=== PATIENT | female | born 1970 | race Caucasian/White ===

== ENCOUNTER 2019-03-29 23:17 | Emergency (ER) | payer BC ==
[2019-03-29] MEDS ORDERED: Ondansetron INJ* 2 MG/ML VIAL IV ONE (23:52)
[2019-03-29] MEDS ORDERED: NS 0.9% 1000 ML** 1,000 ML IV ONE (23:52)
[2019-03-29] MEDS ORDERED: Ketorolac INJ* 30 MG/ML 1 ML VIAL IV PUSH ONE (23:52)
--- NOTE | 2019-03-30 00:14 | ED ---
Abdominal Pain/Female - HPI Summary HPI Summary: Patient is a 48 y/o F w/ Hx of gastic bypass 9 years ago who presents to [facility] with complaints of diffuse abdominal pain which radiates to her back. Pain has been constant throughout today, 03/29/19. She states that she had onset of nausea in ED but denies fever, vomiting, diarrhea, and dysuria. Decreased appetite is noted as well. Nothing is reported to alleviate Sx. Pain is characterized as sharp and she states it feels like "Miguel Ángel horses". No similar previous episodes of this pain is noted. PSHx of section, cholecystectomy reported. She denies tobacco, alcohol, and substance usage. No FMHx of GI issues noted. Patient has not taken any medications [employer]. On triage, pain is rated 6/10, nothing is noted to aggravate/alleviate Sx. Home medications and allergies are reviewed. - History of Current Complaint Chief Complaint: EDAbdPain Stated Complaint: ABD PAIN PER PT Time Seen by Provider: 03/29/19 23:51 Hx Obtained From: Patient Onset/Duration: Lasting Days, Still Present Timing: Days Severity Currently: Moderate Pain Intensity: 6 Pain Scale Used: 0-10 Numeric Location: Diffuse Radiates: Yes Radiates to: Back Character: Sharp Alleviating Factor(s): Nothing Associated Signs and Symptoms: Positive: Decreased Appetite, Nausea. Negative: Fever, Urinary Symptoms, Vomiting, Diarrhea Allergies/Adverse Reactions: Allergies Allergy/AdvReac Type Severity Reaction Status Date / Time No Known Allergies Allergy Verified 03/29/19 23:24 Home Medications: Home Medications ALPRAZolam [Xanax] 0.25 mg PO QPM 03/29/19 [History Confirmed 03/29/19] OXcarbazepine [Oxcarbazepine] 150 mg PO BID 03/29/19 [History Confirmed 03/29/19 ] Sertraline HCl [Zoloft] 75 mg PO DAILY 03/29/19 [History Confirmed 03/29/19] PMH/Surg Hx/FS Hx/Imm Hx Endocrine/Hematology History: Denies: Hx Diabetes Cardiovascular History: Denies: Hx Congestive Heart Failure History: Denies: Hx Renal Disease - Surgical History Surgery Procedure, Year, and Place: gastric bypass Infectious Disease History: No Infectious Disease History: Denies: Traveled Outside the [place] in Last 30 Days - Family History Known Family History: Positive: Hypertension, Diabetes - Social History Alcohol Use: None Substance Use Type: Reports: None Smoking Status (MU): Former Smoker Review of Systems Negative: Fever Gastrointestinal: Other - positive - decreased appetite Positive: Abdominal Pain, Nausea. Negative: Vomiting, Diarrhea Negative: dysuria All Other Systems Reviewed And Are Negative: Yes Physical Exam - Summary Physical Exam Summary: General: Well-developed, Well-nourished female. Mild discomfort at rest. HEENT: Normocephalic, Atraumatic. Eyes: Conjuctiva normal, PERRL. Ears: TMs within normal limits. Nares: (-) discharge, (-) erythema. Oropharynx: Clear, mucous membranes moist, (-) exudates. Neck: Soft, FROM, (-) lymphadenopathy, (-) thyromegaly, (-) JVD. Cardiovascular: Normal sinus rhythm, (-) murmur. Lungs: Clear to auscultation bilaterally (-) wheezes, (-) rales, (-) rhonchi. Abdomen: Soft, moderate tenderness of RUQ and epigastric abdomen, mild tenderness of LUQ; patient complains of diffuse pain throughout abdomen; non- distended, (-) organomegaly, normal bowel sounds. Back: (-) CVA tenderness Extremities: No edema. Skin: Warm, dry, (-) rash. Neuro: Alert and oriented x3, no focal deficits. Psychiatric: Mood normal, affect normal. Triage Information Reviewed: Yes Vital Signs On Initial Exam: Initial Vitals Temp Pulse Resp BP Pulse Ox 98.3 F 59 18 159/79 99 03/29/19 23:25 03/29/19 23:25 03/29/19 23:25 03/29/19 23:25 03/29/19 23:25 Vital Signs Reviewed: Yes Procedures - Sedation Patient Received Moderate/Deep Sedation with Procedure: No Diagnostics - Vital Signs Vital Signs Temp Pulse Resp BP Pulse Ox 03/29/19 23:25 98.3 F 59 18 159/79 99 - Laboratory Result Diagrams: 03/30/19 00:33 03/30/19 00:33 Lab Statement: Any lab studies that have been ordered have been reviewed, and results considered in the medical decision making process. - CT CT ABD/PEL CT Interpretation Completed By: Radiologist Summary of CT Findings: IMPRESSION: 1. Status post gastric surgery. 2. Cholecystectomy. 3. Left renal cyst. 4. Small amount of free intraperitoneal fluid in the cul-de-sac. 5. Probable uterine fibroid. 6. Hepatic calcifications. THIS REPORT WAS REVIEWED BY DR. PIERRE. Abdominal Pain Fem Course/Dx - Course Course Of Treatment: 48 y/o F presents to [facility] with abdominal pain at LLQ for one day. Hx of bypass surgery noted. Workup demonstrates no obvious fever or white count. CT scan shows no findings to explain her Sx. Patient was given IV fluids, toradol, fentanyl, zofran. Patient was discharged to home and will follow up with PCP. Patient will return to ED for any new or worsening symptoms. - Diagnoses Provider Diagnoses: Abdominal pain Discharge ED - Sign-Out/Discharge Documenting (check all that apply): Patient Departure - discharge - Discharge Plan Condition: Stable Disposition: HOME Patient Education Materials: Abdominal Pain (ED) Referrals: Donna Truong MD [Primary Care Provider] - 3 Days Additional Instructions: PLEASE RETURN TO ED FOR ANY NEW OR WORSENING SYMPTOMS. PLEASE FOLLOW UP WITH YOUR PRIMARY CARE PHYSICIAN WITHIN THREE DAYS. - Billing Disposition and Condition Condition: STABLE Disposition: Home - Attestation Statements Document Initiated by Nimo: Yes Documenting Scribe: CHULA CARROLL Provider For Whom Nimo is Documenting (Include Credential): BRODY PIERRE MD Scribe Attestation: CHULA Mancera scribed for BRODY PIERRE MD on 03/30/19 at 0402. Scribe Documentation Reviewed: Yes Provider Attestation: The documentation as recorded by the CHULA lamar accurately reflects the service I personally performed and the decisions made by me, BRODY PIERRE MD Status of Scribe Document: Viewed
[2019-03-30 00:27] LABS: Urine Appearance Clear; Urine Bilirubin Negative (Negative); Urine Blood 1+ (Negative); Urine Color Straw; Urine Glucose Negative (Negative); Urine Ketones Negative (Negative); Urine Nitrite Negative (Negative); Urine Protein Negative (Negative); Urine Specific Gravity 1.009 (1.010-1.030); Urine Urobilinogen Negative (Negative)
[2019-03-30 00:28] LABS: Urine Bacteria Absent (Absent); Urine Red Blood Cell 1+(3-5/hpf) (Absent); Urine Squamous Epithelial Cell Present (Absent); Urine White Blood Cell Absent (Absent)
[2019-03-30 00:50] LABS: ABS Eosinophils 0.1 10^3/ul (0-0.6); ABS Lymphocytes 1.2 10^3/ul (1.0-4.8); ABS Monocytes 0.5 10^3/ul (0-0.8); ABS Neutrophils 4.3 10^3/ul (1.5-7.7); Eosinophil % 1.3 %; Hematocrit 33 % (35-47); Hemoglobin 11.1 g/dL (12.0-16.0); Lymphocyte % 19.5 %; Mean Corpuscular HGB Conc 33 g/dL (31-36); Mean Corpuscular Hemoglobin 27 pg (27-31); Mean Corpuscular Volume 81 fL (80-97); Mean Platelet Volume 8.2 fL (7.4-10.4); Platelet Count 187 10^3/uL (150-450); Red Blood Count 4.09 10^6 /uL (3.70-4.87); Red Cell Distribution Width 15 % (10-15); White Blood Count 6.1 10^3/uL (3.5-10.8)
[2019-03-30 00:56] LABS: INR 0.93 (0.82-1.09)
[2019-03-30 01:03] LABS: ALT 15 U/L (7-52); AST 18 U/L (13-39); Albumin 3.6 g/dL (3.2-5.2); Albumin/Globulin Ratio 1.2 (1-3); Alkaline Phosphatase 90 U/L (34-104); Amylase 42 U/L (29-103); Anion Gap 6 mmol/L (2-11); BUN/Creatinine Ratio 19.1 (8-20); Blood Urea Nitrogen 13 mg/dL (6-24); C Reactive Protein < 1.00 mg/L (<8.01); CO2 Carbon Dioxide 26 mmol/L (22-32); Calcium 8.8 mg/dL (8.6-10.3); Chloride 105 mmol/L (101-111); EGFR African American 110.8 (>60); EGFR Non-African American 91.6 (>60); Glucose 93 mg/dL (70-100); Potassium 3.6 mmol/L (3.5-5.0); Sodium 137 mmol/L (135-145); Total Protein 6.6 g/dL (6.4-8.9)
[2019-03-30] MEDS ORDERED: Morphine INJ* 2 MG/ML 1 ML SYRINGE (TWO MG - NEW SYRINGE VERSION) IV PRN (01:48)
[2019-03-30] MEDS ORDERED: Iohexol 300* (CONTRAST) 10 ML SDV IV ONE (02:09)
[2019-03-30] MEDS ORDERED: fentaNYL* 50 MCG/ML 2 ML VIAL (100 MCG VIAL) IV SLOW PU ONE (02:21)
[2019-03-30 04:11] VITALS: BP 141/80
--- OUTSIDE RECORDS SUMMARY | 2019-04-03 14:37 | XMS REPORT | Continuity of Care Document ---
:1970 Author Organization [facility] Address [address] [place] [address] Phone Care Team Providers Name Role Phone Kim Mcrae NP Unavailable Unavailable Allergies, Adverse Reactions, Alerts Substance Reaction Status No Known Allergies Active Medications Medication Instructions Dosage Effective Dates Status Comments (start - stop) Xanax 0.25 mg tablet take 0.5 tablet by - Active oral route PRN as needed Problems Condition Effective Dates (start - Clinical Status Comments stop) Human immunodeficiency virus [HIV] - counseling Encounter for screening for human - immunodeficiency virus Encounter for screening for malignant neoplasm of cervix Encntr screen for infections w sexl mode of transmiss Encounter for oth screening for malignant neoplasm of breast Mastodynia Encntr for [place] maori exam (general) (routine) w abnormal findings Encounter for oth screening for malignant neoplasm of breast Encntr screen mammogram for malignant neoplasm of breast Encntr for [place] maori exam (general) (routine) w/o abn findings Encounter for screening for malignant neoplasm of cervix Unspecified lump in breast Procedures Procedure Date No information Results Test Name Date and Time Measure Units Reference Range Abnormal Flag Status Comments No information Advance Directives Directive Yes / No Effective Date File Name No information Encounters Encounter Practice Location Reason(s) Diagnoses Date Provider Providers Description For Visit Copied on Encounter [facility] [place] . [facility] [address] [facility], [address] [facility], , [place], [place], [address] [id number], tel:[phone] tel: [phone] [facility] [place] [facility] [place] immunodeficiency . Provider: [facility] virus [HIV] [address] counselingEncounter [place] [address] [place] [facility] [place], [place] [address] [place] [id number]. [place], [id number]. [id number], screening for tel:[phone] tel:[phone] [place] malignant neoplasm [phone] tel:[phone] of cervixEncntr [id number] screen for infections w sexl mode of transmissEncounter for oth screening for malignant neoplasm of breastMastodyniaEnc ntr for [place] maori exam (general) (routine) w abnormal findings [facility] Encounter for oth [place] [facility] [place] screening for 5-Octia. [place] malignant neoplasm [address] of breastEncntr [place], [address] [place] for malignant [place] [id number]. [id number], [place] maori exam (general) tel:+[phone] [place] (routine) w/o abn [phone] tel:[phone] findingsEncounter [phone] for screening for malignant neoplasm of cervixUnspecified lump in breast Family History Family Member Diagnosis Age At Onset Father No history of Myocardial infarction before age 55 No family history of Cancer, colon Mother No history of Stroke before age 65 No family history of Diabetes mellitus Sister Hypertension No family history of Cancer, ovarian Sister No history of Stroke before age 65 Sister No history of Myocardial infarction before age 65 No family history of Blood clots, lung Maternal aunt Cancer, breast 62 Father Hypertension Mother No history of Myocardial infarction before age 65 Father No history of Stroke before age 55 No family history of Blood clots, legs No family history of Cardiovascular disease Brother No history of Myocardial infarction before age 55 Brother No history of Stroke before age 55 No family history of High cholesterol Immunizations Vaccine Date Status Comments No information Payers Payer name Insurance type Covered republican ID Authorization(s) [facility] [id number] Social History Type Description Quantity Date Captured Comments Alcohol Use Details Unknown Caffeine Use Details Unknown Tobacco Use Status Unknown Smoking Status Former smoker Sex Female Vital Signs Date / Height Weight BMI Pulse Blood Temperature Respiratory Body Head BMI Pulse Inhaled Time: Rate Pressure Rate Surface Circumference percentile Ox Ox Area No information Chief Complaint And Reason For Visit No information Reason For Referral Reason For Referral No information Plan Of Treatment Date Type Action Status No information History Of Present Illness Encounter Date Complaint History Of Present Illness No information Functional Status Date Functional Assessment No information Medications Administered Medication Instructions Dosage Effective Dates (start - stop) Status Comments No information Instructions Date Instruction Additional Information No information Assessments Type Assessment Date No information Goals Health Concern Goal Type Priority Status Date No information Medical Equipment Description Device [place] Device Identifier Effective Dates (start - stop ) Status No information Mental Status Date Cognitive Assessment No information Health Concerns Observation Date No information Concern Status Date No information
== END 2019-03-30 04:11 | disposition home or self-care (01) ==
LOC: ED 23:17
DX: R10.9 Unspecified abdominal pain (principal); N28.1 Cyst of kidney, acquired; Z87.891 Personal history of nicotine dependence; Z98.84 Bariatric surgery status; Z90.49 Acquired absence of other specified parts of digestive tract; Z79.899 Other long term (current) drug therapy
CPT/HCPCS: 36415; 74177; 80053; 81003; 81015; 82150; 83605; 83690; 85025; 85610; 86140; 87040; 96361; 96374; 96375; 99283; J1885; J2405; J3010; Q9967

== ENCOUNTER 2019-03-31 23:16 | Emergency (ER) | payer BC ==
[2019-03-31] MEDS ORDERED: NS 0.9% 1000 ML** 1,000 ML IV ONE (23:33)
[2019-03-31] MEDS ORDERED: Pantoprazole IV* 40 MG IV ONE (23:33)
[2019-03-31] MEDS ORDERED: Ondansetron INJ* 2 MG/ML VIAL IV ONE (23:33)
[2019-03-31] MEDS ORDERED: Lidocaine 2% VISCOUS* 15 ML UDC PO ONE (23:43)
[2019-03-31] MEDS ORDERED: Al Hydrox/Mg Hydrox/Simet LIQ* 30 ML UDC PO ONE (23:43)
--- NOTE | 2019-03-31 23:58 | ED ---
GI/ HPI - HPI Summary HPI Summary: 48 year old female presents with abd pain for past 2 days. She states that it is like a charley horse in her abdomen. She also has pain in her back. She denies any injury. Never had this pain before. She had a gastric bypass done 9 years ago without any complications. She admits to nausea and no vomiting. She had an episode of diarrhea today. Pain was manageable patient states until she tried to eat something then the pain increased. Pain is the same location as 2 days ago. She denies any fevers. No urinary symptoms. No blood in her urine or stool. No past medical conditions. She was seen here 2 days and had negative CT. has had a cholecystectomy and gastric bypass. - History of Current Complaint Chief Complaint: EDAbdPain Time Seen by Provider: 03/31/19 23:24 Stated Complaint: ABD/BACK PAIN PER PT Pain Intensity: 6 - Allergy/Home Medications Allergies/Adverse Reactions: Allergies Allergy/AdvReac Type Severity Reaction Status Date / Time morphine Allergy Shortness Verified 03/31/19 23:20 of Breath PMH/Surg Hx/FS Hx/Imm Hx Endocrine/Hematology History: Denies: Hx Diabetes Cardiovascular History: Denies: Hx Congestive Heart Failure History: Denies: Hx Renal Disease - Surgical History Surgery Procedure, Year, and Place: gastric bypass Infectious Disease History: No Infectious Disease History: Denies: Traveled Outside the [place] in Last 30 Days - Family History Known Family History: Positive: Hypertension, Diabetes - Social History Alcohol Use: None Substance Use Type: Reports: None Smoking Status (MU): Former Smoker Review of Systems Negative: Fever Negative: Chest Pain Negative: Shortness Of Breath Positive: Abdominal Pain, Vomiting, Diarrhea, Nausea All Other Systems Reviewed And Are Negative: Yes Physical Exam Triage Information Reviewed: Yes Vital Signs On Initial Exam: Initial Vitals Temp Pulse Resp BP Pulse Ox 98.1 F 66 15 141/72 99 03/31/19 23:17 03/31/19 23:17 03/31/19 23:17 03/31/19 23:17 03/31/19 23:17 Vital Signs Reviewed: Yes Appearance: Positive: Well-Appearing Skin: Positive: Warm, Dry Head/Face: Positive: Normal Head/Face Inspection Eyes: Positive: Normal, Conjunctiva Clear ENT: Positive: Pharynx normal Respiratory/Lung Sounds: Positive: Clear to Auscultation, Breath Sounds Present Cardiovascular: Positive: Normal, RRR Abdomen Description: Positive: Soft, CVA Tenderness (R), CVA Tenderness (L), Other: - tenderness in epigastric Bowel Sounds: Positive: Present Musculoskeletal: Positive: Normal Neurological: Positive: Normal Psychiatric: Positive: Normal Procedures - Sedation Patient Received Moderate/Deep Sedation with Procedure: No Diagnostics - Vital Signs Vital Signs Temp Pulse Resp BP Pulse Ox 03/31/19 23:17 98.1 F 66 15 141/72 99 - Laboratory Result Diagrams: 04/01/19 00:11 04/01/19 00:11 Lab Statement: Any lab studies that have been ordered have been reviewed, and results considered in the medical decision making process. - CT abd CT Interpretation Completed By: Radiologist Summary of CT Findings: IMPRESSION: 1. Small hiatal hernia with evidence of gastroesophageal reflux. 2. Fibroid uterus. Stable complex possibly hemorrhagic right adnexal lesion measuring 5 x 2.7 cm. This can be further assessed with pelvic ultrasound if clinically warranted. 3. Marked gaseous distention of nearly entire colon. - EKG No standard instances Cardiac Rate: NL EKG Rhythm: Sinus Rhythm EKG Comparison: No Significant Change Summary of EKG Findings: sinus rhythm Re-Evaluation - Re-Evaluation First Eval Re-Evaluation Time: 00:40 Comment: upper abd pain better, but has pain in lower abd and back still GIGU Course/Dx - Course Course Of Treatment: 48 year old female presents with abd pain for past 2 days. She states that it is like a charley horse in her abdomen. She also has pain in her back. She denies any injury. Never had this pain before. She had a gastric bypass done 9 years ago without any complications. She admits to nausea and no vomiting. She had an episode of diarrhea today. Pain was manageable patient states until she tried to eat something then the pain increased. Pain is the same location as 2 days ago. She denies any fevers. No urinary symptoms. No blood in her urine or stool. No past medical conditions. She was seen here 2 days and had negative CT. On exam has tenderness in epigastric and lower flanks. wbc normal. crp normal. mg is 1.6 so will give supplement. troponin zero. CT abd shows hiatial hernia and possible ovarian cyst. will place on course of omeprazole. told follow up with GI. gave short course of pain medication. patient understand and agrees with plan. - Diagnoses Differential Diagnoses - Female: Gastritis, Gastroenteritis (Viral), Pyelonephritis Provider Diagnoses: Ovarian cyst, Abdominal pain, Acid reflux Discharge ED - Sign-Out/Discharge Documenting (check all that apply): Patient Departure - Discharge Plan Condition: Good Disposition: HOME Prescriptions: Al Hydrox/Mg Hydrox/Simet LIQ* [Maalox Plus*] 30 ml PO Q6H PRN #1 udc PRN Reason: Dyspepsia HYDROcodone/ACETAMIN 5-325 MG* [[place] 5-325 TAB*] 1 tab PO Q6H PRN #8 tab MDD 4 PRN Reason: Pain - Severe Omeprazole 20 mg PO DAILY #14 capsule. Patient Education Materials: Epigastric Pain (ED) Referrals: Donna Truong MD [Primary Care Provider] - Gildardo Rodriguez MD [Medical Doctor] - Additional Instructions: Take omeprazole once a day Take Maalox 30ml every 6 hours for epigastric pain as needed Avoid acidic foods take tyenlol for pain every 6 hours, use norco for severe pain every 6 hours Follow up with primary GI Return to ED if develop any new or worsening symptoms - Billing Disposition and Condition Condition: GOOD Disposition: Home
[2019-04-01 00:24] LABS: ABS Eosinophils 0.1 10^3/ul (0-0.6); ABS Lymphocytes 0.9 10^3/ul (1.0-4.8); ABS Monocytes 0.4 10^3/ul (0-0.8); Eosinophil % 2.2 %; Hematocrit 32 % (35-47); Hemoglobin 10.5 g/dL (12.0-16.0); Lymphocyte % 15.9 %; Mean Corpuscular HGB Conc 33 g/dL (31-36); Mean Corpuscular Hemoglobin 27 pg (27-31); Mean Corpuscular Volume 82 fL (80-97); Mean Platelet Volume 8.5 fL (7.4-10.4); Nucleated Red Blood Cells % 0.1; Platelet Count 185 10^3/uL (150-450); Red Cell Distribution Width 15 % (10-15); White Blood Count 5.4 10^3/uL (3.5-10.8)
[2019-04-01] MEDS ORDERED: HYDROmorphone INJ1* 1 MG/ML SYRINGE IV SLOW PU ONE (00:37)
[2019-04-01 00:42] LABS: Albumin 3.5 g/dL (3.2-5.2); Albumin/Globulin Ratio 1.3 (1-3); BUN/Creatinine Ratio 14.5 (8-20); C Reactive Protein 1.04 mg/L (<8.01); Calcium 8.3 mg/dL (8.6-10.3); EGFR African American 123.3 (>60); EGFR Non-African American 101.9 (>60); Globulin 2.8 g/dL (2-4); Magnesium 1.6 mg/dL (1.9-2.7); Total Bilirubin 0.3 mg/dL (0.2-1.0); Total Protein 6.3 g/dL (6.4-8.9)
[2019-04-01] MEDS ORDERED: Magnesium Sulfate 1 GM IV* 1 GM/100 ML BAG IV ONE (00:54)
[2019-04-01] MEDS ORDERED: Iohexol 300* (CONTRAST) 10 ML SDV IV ONE (01:01)
[2019-04-01 02:48] VITALS: BP 141/78
== END 2019-04-01 02:38 | disposition home or self-care (01) ==
LOC: ED 23:16
DX: D25.9 Leiomyoma of uterus, unspecified (principal); K21.9 Gastro-esophageal reflux disease without esophagitis; K44.9 Diaphragmatic hernia without obstruction or gangrene; R10.30 Lower abdominal pain, unspecified; R10.816 Epigastric abdominal tenderness; R11.2 Nausea with vomiting, unspecified; R19.7 Diarrhea, unspecified; Z98.84 Bariatric surgery status; Z88.5 Allergy status to narcotic agent; Z87.891 Personal history of nicotine dependence
CPT/HCPCS: 36415; 74177; 80053; 83540; 83605; 83690; 83735; 84484; 85025; 86140; 93005; 96361; 96365; 96375; 99283; A9270-GY; J1170; J2405; J3475; Q9967